=== PATIENT | male | born 1965 | race Caucasian/White ===

== ENCOUNTER 2017-11-01 07:15 | Inpatient (IN) | payer OTHER ==
[~2017-11-01] VITALS: Ht 182.9 cm; Wt 88.0 kg
[~2017-11-01 07:15] MED LIST: NORVASC5 MG PO; PROTONIX40 MG PO; PROVENTIL HFA6.7 GM IH; TRICOR145 MG PO; ZANTAC300 MG PO
[2017-11-03] MEDS ORDERED: MIRALAX17 GM PO (11:27)
[2017-11-03] MEDS ORDERED: PERCOCET 5-3251 EACH PO (11:27)
[2017-11-03] MEDS ORDERED: NEURONTIN300 MG PO (11:27)
== END 2017-11-03 13:08 | disposition home or self-care (01) | DRG 328 ==
LOC: CIR.AMB 07:15 → SURG 18:51
PROVIDERS: Surgery
PROC: 0BUT4JZ Supplement Diaphragm with Synthetic Substitute, Percutaneous Endoscopic Approach (ICD-10-PCS; principal; 2017-11-01 07:15)
DX: K44.9 Diaphragmatic hernia without obstruction or gangrene (principal); I10 Essential (primary) hypertension